=== PATIENT | male | born 1955 | race Caucasian/White ===

== ENCOUNTER 2018-04-11 09:05 | Emergency (ER) | payer OTHER ==
--- NOTE | 2018-04-11 09:19 | ER Document Report ---
ED Hip Pain/Injury - General Chief Complaint: Hip Pain Stated Complaint: FALL HIP INJURY Time Seen by Provider: 04/11/18 09:19 Notes: 62-year-old male to emergency department chief complaint of left hip pain. 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 Been over this morning to put socks on and felt a pop. Moderate pain. Unable to bear weight. Patient has had this happen on numerous occasions with other hip but this is a new hip. No other major symptoms at this time. EMS was called. EMS was able to establish IV. Immobilize hip. IV Dilaudid was given. TRAVEL OUTSIDE OF THE [place] IN LAST 30 DAYS: No - HPI Patient complains to provider of: Injury, Hip Occurred: Just prior to arrival Where: Home - Related Data Allergies/Adverse Reactions: No Known Allergies Allergy (Unverified 04/11/18 09:21) Past Medical History - General Information source: Patient - Social History Smoking Status: Smoker,Current Status Unk Cigarette use (# per day): No Frequency of alcohol use: None Drug Abuse: None Lives with: Spouse/Significant other Family History: Reviewed & Not Pertinent - Medical History Medical History: Negative - Past Medical History Cardiac Medical History: Reports: None Pulmonary Medical History: Reports: None EENT Medical History: Reports: None Neurological Medical History: Reports: None Endocrine Medical History: Reports: None Musculoskeltal Medical History: Reports Other - History of with recurrent dislocation Review of Systems - Review of Systems Constitutional: No symptoms reported. denies: Fever, Malaise, Weakness EENT: denies: Eye pain, Nose pain, Mouth pain Cardiovascular: denies: Chest pain, Palpitations, Heart racing Respiratory: denies: Cough, Hurts to breathe, Short of breath, Wheezing Gastrointestinal: denies: Abdominal pain, Diarrhea, Nausea, Vomiting Genitourinary: No symptoms reported Male Genitourinary: No symptoms reported Musculoskeletal: See HPI, Joint pain, Deformity. denies: Neck pain Skin: No symptoms reported Hematologic/Lymphatic: denies: Anemia, Blood clots, Easy bleeding, Easy bruising Neurological/Psychological: denies: Confusion, Dementia, Weakness, Numbness Physical Exam - Vital signs Vitals: Temp Pulse Resp BP Pulse Ox 97.5 F 85 18 111/75 97 04/11/18 09:14 04/11/18 09:14 04/11/18 09:14 04/11/18 09:14 04/11/18 09:14 Interpretation: Normal - General General appearance: Appears well, Alert - HEENT Head: Normocephalic, Atraumatic Eyes: Normal Pupils: PERRL - Respiratory Respiratory status: No respiratory distress Chest status: Nontender Breath sounds: Normal Chest palpation: Normal - Cardiovascular Rhythm: Regular Heart sounds: Normal auscultation Murmur: No - Abdominal Inspection: Normal Distension: No distension Bowel sounds: Normal Tenderness: Nontender Organomegaly: No organomegaly - Back Back: Normal, Nontender - Extremities General upper extremity: Normal inspection, Nontender, Normal color, Normal ROM , Normal temperature General lower extremity: Other - Is tenderness palpation the left hip. Mild deformity of the left hip. Pulses are intact lower extremity. Station intact.. No: Gila's sign - Neurological Neuro grossly intact: Yes Cognition: Normal Orientation: AAOx4 [place] Coma Scale Eye Opening: Spontaneous [place] Coma Scale Verbal: Oriented [place] Coma Scale Motor: Obeys Commands [place] Coma Scale Total: 15 Speech: Normal Motor strength normal: LUE, RUE, LLE, RLE Sensory: Normal - Psychological Associated symptoms: Normal affect, Normal mood - Skin Skin Temperature: Warm Skin Moisture: Dry Skin Color: Normal Course - Re-evaluation Re-evalutation: 04/11/18 09:27 xray reveals dislocation of the prosthetic hip. Will attempt reduction. If unsuccessful may need help from orthopedics. 04/11/18 10:[address] Nichole with orthopedic surgery. He has reviewed the films. Patient may need to go to the OR to have this reduced. At this time will keep n.p.o., IV fluids, pain control as needed and reassess. 04/11/18 10:[address] Nichole who also spoke with Dr. Collado. 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 Our surgeons here do not feel they have the equipment needed to take care of this patient. They recommend transfer to [facility]. Will attempt to consult with a surgeon there. Of note, patient also request to be transferred to [facility] if possible. Transfers at surgeon's request as well as patient's request. 04/11/18 11:10 The surgeon sales promotion representative for orthopedics, Dr. Oro at [facility] has accepted patient however they are on max capacity. I have placed a call to [facility] as well as [facility]'s 04/11/18 12:50 Currently no beds available anywhere but at [facility]. Did speak with orthopedic surgery at [facility] and they would not be able to see patient any sooner than what could be done at [facility]. The same applied to the orthopedic surgery department at [facility] in [place]. Of note I was able to consult with patient's orthopedic surgeon who was in the OR and [place] who recommended that he be transferred to place and had a joint revision specialist. I will proceed with transfer at this time. Patient has been made aware of the situation and is comfortable with this plan. 04/11/18 12:51 Laboratory 04/11/18 04/11/18 04/11/18 10:43 10:43 10:43 WBC 6.3 RBC 4.84 Hgb 14.1 Hct 41.5 MCV 86 MCH 29.1 MCHC 33.9 RDW 17.0 H Plt Count 230 Seg Neutrophils % 73.7 Lymphocytes % 16.0 Monocytes % 5.1 Eosinophils % 4.0 Basophils % 1.2 Absolute Neutrophils 4.7 Absolute Lymphocytes 1.0 Absolute Monocytes 0.3 Absolute Eosinophils 0.3 Absolute Basophils 0.1 PT 14.0 INR 1.03 APTT 29.2 Sodium 144.7 Potassium 4.0 Chloride 108 H Carbon Dioxide 28 Anion Gap 9 BUN 15 Creatinine 0.73 Est GFR ( Amer) > 60 Est GFR (Non-Af Amer) > 60 Glucose 104 Calcium 9.3 Total Bilirubin 0.9 Direct Bilirubin 0.3 Neonat Total Bilirubin Not Reportable Neonat Direct Bilirubin Not Reportable Neonat Indirect Bili Not Reportable AST 22 ALT 21 Alkaline Phosphatase 61 Total Protein 6.5 Albumin 3.7 Hip X-Ray 04/11/18 09:10 IMPRESSION: Dislocation left hip arthroplasty. 04/11/18 13:05 04/11/18 14:33 Patient remained stable at this time. Pending transfer. 04/11/18 15:00 Transport will be here shortly. Patient remained stable for transfer at this time. - Vital Signs Vital signs: Temp Pulse Resp BP Pulse Ox 97.5 F 85 18 111/75 97 04/11/18 09:14 04/11/18 09:14 04/11/18 09:14 04/11/18 09:14 04/11/18 09:14 - Laboratory Result Diagrams: 04/11/18 10:43 04/11/18 10:43 Laboratory results interpreted by me: 04/11/18 04/11/18 10:43 10:43 RDW 17.0 H Chloride 108 H - EKG Interpretation by Me EKG shows normal: Sinus rhythm, [place], Intervals, QRS Complexes, ST-T Waves Discharge - Discharge Clinical Impression: Recurrent dislocation, left hip Condition: Good Disposition: [facility]
--- NOTE | 2018-04-11 09:46 | RADIOLOGY REPORT (SQ) ---
EXAM DESCRIPTION: HIP LEFT AP/LATERAL COMPLETED DATE/TIME: 04/11/2018 9:27 am REASON FOR STUDY: pain COMPARISON: None. TECHNIQUE: Four views of the hips including AP pelvis LIMITATIONS: None. FINDINGS: No acute fractures are identified. On the right hip arthroplasty appears well seated. On the left posterior dislocation of the hip arthroplasty, the prosthetic femoral head displaced post eriorly and superiorly, the acetabular portion remains within the acetabulum. IMPRESSION: Dislocation left hip arthroplasty. TECHNICAL DOCUMENTATION: JOB ID: [id number] [employer]- All Rights Reserved Reading location - IP/workstation name: [facility]
[2018-04-11] MEDS ORDERED: RINGERS SOLUTION,LACTATED 1,000 ML IV ONE (09:59)
[2018-04-11 11:08] LABS: ABSOLUTE BASOPHILS # (AUTO) 0.1 10^3/uL (0.0-0.2); ABSOLUTE EOSINOPHILS # (AUTO) 0.3 10^3/uL (0.0-0.6); ABSOLUTE MONOCYTES (AUTO) 0.3 10^3/uL (0.1-1.4); ABSOLUTE NEUT (AUTO) 4.7 10^3/uL (1.7-8.2); BASOPHILS % (AUTO) 1.2 % (0-2); HEMATOCRIT 41.5 % (37.9-51.0); HEMOGLOBIN 14.1 g/dL (13.5-17.0); INTERNATIONAL RATION (INR) 1.03; MEAN CORPUSCULAR HEMOGLOBIN 29.1 pg (27.0-33.4); MEAN CORPUSCULAR HGB CONC 33.9 g/dL (32.0-36.0); MEAN CORPUSCULAR VOLUME 86 fl (80-97); MONOCYTES % (AUTO) 5.1 % (3-13); PLATELET COUNT 230 10^3/uL (150-450); RED BLOOD COUNT 4.84 10^6/uL (4.35-5.55); SEGMENTED NEUTROPHILS % (AUTO) 73.7 % (42-78); TOTAL CELLS COUNTED % (AUTO) 100 %; WHITE BLOOD COUNT 6.3 10^3/uL (4.0-10.5)
[2018-04-11 11:09] LABS: PARTIAL THROMBOPLASTIN TIME 29.2 SEC (23.5-35.8)
[2018-04-11 11:30] LABS: ALANINE AMINOTRANSFERASE 21 U/L (21-72); ALBUMIN 3.7 g/dL (3.5-5.0); ALKALINE PHOSPHATASE 61 U/L (38-126); ANION GAP 9 (5-19); ASPARTATE AMINO TRANSFERASE 22 U/L (17-59); BILIRUBIN,DIRECT 0.3 mg/dL (0.0-0.4); BILIRUBIN,TOTAL 0.9 mg/dL (0.2-1.3); BLOOD UREA NITROGEN 15 mg/dL (7-20); CALCIUM 9.3 mg/dL (8.4-10.2); CARBON DIOXIDE 28 mmol/L (22-30); CHLORIDE 108 mmol/L (98-107); GLUCOSE 104 mg/dL (75-110); SODIUM 144.7 mmol/L (137-145); TOTAL PROTEIN 6.5 g/dL (6.3-8.2)
[2018-04-11] MEDS: FENTANYL CITRATE INJ/PF 100 MCG/2 ML AMPUL IV PRN ×2 (11:33→14:47)
--- NOTE | 2018-04-11 13:52 | EKG REPORT ---
SEVERITY:- ABNORMAL ECG - SINUS RHYTHM NONSPECIFIC INTRAVENTRICULAR CONDUCTION DELAY : Confirmed by: Baron Nguyen MD 11-Apr-2018 13:52:05
[2018-04-11 15:09] VITALS: BP 108/82
== END 2018-04-11 15:16 | disposition short-term general hospital (02) ==
LOC: ER 09:05
DX: T84.021A Dislocation of internal left hip prosthesis, initial encounter (principal); M25.552 Pain in left hip; Z96.642 Presence of left artificial hip joint; X58.XXXA Exposure to other specified factors, initial encounter; F17.200 Nicotine dependence, unspecified, uncomplicated
CPT/HCPCS: 93005; 96376; 99285; 96361; 96374; 36415; 85025; 85610; 85730; 80053; 73502; 93010; J3010; J7120